=== PATIENT | female | born 1985 | race Caucasian/White ===

== ENCOUNTER 2022-04-08 14:42 | Emergency (ER) | payer OTHER, SELFPAY ==
[~2022-04-08] VITALS: Ht 175.3 cm; Wt 86.3 kg
[2022-04-08] MEDS ORDERED: ADDE20CA3 PO (14:51)
[2022-04-08 16:02] VITALS: BP 120/76
== END 2022-04-08 16:15 | disposition home or self-care (01) ==
LOC: M ED 14:42
DX: R09.89 Other specified symptoms and signs involving the circulatory and respiratory systems (principal)

== ENCOUNTER → 2022-05-11 | Outpatient (CLI) | payer BC ==
[~2022-05-11] MED LIST: ADDE20CA3 PO
[2022-05-13 15:08] LABS: EBV VIRAL CAPSID AG IgM <36.0 U/mL (0.0-35.9)
== END ==
LOC: M LAB 16:42
PROVIDERS: ATTEND Nurse Practitioner Family
DX: R53.83 Other fatigue (principal)

== ENCOUNTER → 2022-08-27 | Outpatient (CLI) | payer BC | LOC: M LABSMTC 12:09 | PROVIDERS: ATTEND Anesthesiology | DX: Z01.812 Encounter for preprocedural laboratory examination (principal) ==

== ENCOUNTER 2022-08-30 08:37 | Day surgery (SDC) | payer BC ==
[~2022-08-30] VITALS: Ht 175.3 cm; Wt 81.6 kg
[~2022-08-30 08:37] MED LIST changes: +NS 1,000 ML IV ONE
[2022-08-30] MEDS ORDERED: LIDOCAINE 2% 100MG/5ML SDV (FOR ANES.) As Ordered ONE (11:12)
[2022-08-30] MEDS ORDERED: propofoL 200 MG/20 ML VIAL As Ordered ONE (11:12)
[2022-08-30 11:45] VITALS: BP 110/72
== END 2022-08-30 11:53 | disposition home or self-care (01) ==
LOC: M OPP 08:37
PROVIDERS: ATTEND Internal Medicine Gastroenterology
DX: K20.0 Eosinophilic esophagitis (principal); K22.89 Other specified disease of esophagus; R13.10 Dysphagia, unspecified; G43.909 Migraine, unspecified, not intractable, without status migrainosus; Z79.899 Other long term (current) drug therapy